=== PATIENT | male | born 1965 | race Hispanic/Latino ===

== ENCOUNTER 2025-02-19 05:59 | Day surgery (SDC) | payer BC ==
--- NOTE | 2025-02-18 14:38 | EKG ---
[facility] Test Date: 2025-02-18 Test Time: 14:28:12 Pat Name: ISAIAH BROCK Department: [facility] Room: Gender: M Family Services Assistant: [id number] : 1965 Requested By: JUD BURGOS Order Number: [id number] Reading MD: Dorothy Vega Measurements Intervals [place] Rate: 60 P: 13 AR: 161 QRS: 39 QRSD: 91 T: 22 QT: 415 QTc: 417 Interpretive Statements Sinus rhythm No previous ECG available for comparison Electronically Signed On 02-18-2025 16:38:30 CDT by Dorothy Vega Please click the below link to view image of tracing.
[2025-02-18 14:47] LABS: IMMATURE GRANULOCYTE ABSOLUTE 0.01 K/uL (0-1); NUCLEATED RED BLOOD CELLS 0.0 % (0.0-0.19); PLATELET COUNT (AUTO) 150 K/uL (130-400); RED BLOOD CELL COUNT(AUTO) 4.67 MIL/uL (4.50-6.20); RED CELL DISTRIBUTION WIDTH 13.8 % (11.0-15.5); WHITE BLOOD COUNT (AUTO) 5.7 K/uL (4.8-10.8)
[2025-02-18 14:57] VITALS: BP 101/64; PULSE 53; RESP 12; TEMP 98.2
[2025-02-18 15:08] LABS: INR 1.03 (0.85-1.15)
[2025-02-18 15:12] LABS: ASPARTATE AMINOTRANSFERASE 11.0 U/L (10-37); CREATININE 1.0 mg/dL (0.5-1.3); GLOMERULAR FILTR. RATE CALC 88.0 mL/min (>90); GLUCOSE,RANDOM 102.0 mg/dL (70-105); SODIUM SERUM 140.0 mmol/L (136-145); TOTAL PROTEIN, SERUM 6.8 g/dL (6.0-8.3); UREA NITROGEN, BLOOD 16.0 mg/dL (7-18)
[2025-02-19] VITALS (13 sets, daily range): BP systolic 98–109; BP diastolic 53–68; PULSE 56–84; RESP 15–18; TEMP 97.3–98.6
[~2025-02-19] VITALS: Ht 181.6 cm; Wt 98.0 kg
[~2025-02-19 05:59] MED LIST: P-EP-94 PO; PANT40TA54 PO
[2025-02-19] MEDS ORDERED: LACTATED RINGERS 1000ML 1,000 ML IV ONE (06:39)
[2025-02-19] MEDS ORDERED: FAMOTIDINE 20MG VIAL IV ONE (07:25)
[2025-02-19] MEDS ORDERED: MIDAZOLAM HCL 1 MG/ML 2ML VIAL ONE (07:25)
[2025-02-19] MEDS ORDERED: LIDOCAINE PF 100MG/5ML (2%) SYRINGE 5ML ONE (07:30)
[2025-02-19] MEDS ORDERED: CLINDAMYCIN IVPB 900MG/50ML 50 ML IV ONE (07:57)
[2025-02-19] MEDS ORDERED: INDOCYANINE GREEN 25 MG VIAL IJ ONE (08:13)
[2025-02-19] MEDS ORDERED: GLYCOPYRROLATE 0.2 MG/ML 5 ML VIAL ONE (08:28)
[2025-02-19] MEDS ORDERED: NEOSTIGMINE METHYLSULFATE 1MG/ML IV ONE (08:28)
[2025-02-19] MEDS: CLINDAMYCIN 900MG/6ML INJ IVPB ONE (08:35)
--- NOTE | 2025-02-19 11:02 | PN ---
GENERAL SURGERY PROGRESS NOTE Date/Time Patient Seen: [ 02/19/25 at 11am] Problem List: [ ] Interval History: [ POD 0. Pain tolerable w PO PRN meds.] Physical Examination: GENERAL: [No acute distress.] ABD: [Incisions c/d/i Dermabond in place] Vital Signs (last 8hr) Date Time Temp Pulse Resp B/P (MAP) Pulse Ox O2 Delivery O2 Flow Rate FiO2 02/19/25 10:55 97.3 71 16 105/59 95 Room Air 21 02/19/25 10:50 97.3 71 16 100/56 99 Nonrebreathing Mask 10.0 100 02/19/25 10:45 97.3 84 15 100/62 99 Nonrebreathing Mask 10.0 100 02/19/25 10:40 97.3 84 15 99/57 99 Nonrebreathing Mask 10.0 100 02/19/25 07:00 98.6 56 18 104/68 100 Room Air 21 Laboratory: [ ] Hematology Labs: Test 02/18/25 14:30 Range/Units White Blood Count 5.7 4.8-10.8 K/uL Red Blood Count 4.67 4.50-6.20 MIL/uL Hemoglobin 13.4 L 14.0-18.0 g/dL Hematocrit 41.7 L 42-54 % Mean Corpuscular Volume 89.3 79-99 fL Mean Corpuscular Hemoglobin 28.7 27.0-33.0 pg Mean Corpuscular Hemoglobin Concent 32.1 32.0-36.0 g/dL Red Cell Distribution Width 13.8 11.0-15.5 % Platelet Count 150 130-400 K/uL Mean Platelet Volume 11.9 H 7.5-10.5 fL Immature Granulocyte % (Auto) 0.2 0-1 % Neutrophils (%) (Auto) 66.8 40.0-77.0 % Lymphocytes (%) (Auto) 21.2 21.0-51.0 % Monocytes (%) (Auto) 6.5 3.0-13.0 % Eosinophils (%) (Auto) 4.6 0.0-8.0 % Basophils (%) (Auto) 0.7 0.0-5.0 % Neutrophils # (Auto) 3.8 1.8-7.7 K/uL Lymphocytes # (Auto) 1.2 1.0-4.8 K/uL Monocytes # (Auto) 0.4 0.1-1.0 K/uL Eosinophils # (Auto) 0.26 0.00-0.70 K/uL Basophils # (Auto) 0.04 0.00-0.20 K/uL Absolute Immature Granulocyte (auto 0.01 0-1 K/uL Nucleated Red Blood Cells 0.0 0.0-0.19 % Chemistry Labs: Test 02/18/25 14:30 Range/Units Sodium Level 140 136-145 mmol/L Potassium Level 4.1 3.5-5.1 mmol/L Chloride Level 104 101-111 mmol/L Carbon Dioxide Level 31 21-32 mmol/L Blood Urea Nitrogen 16 7-18 mg/dL Creatinine 1.0 0.5-1.3 mg/dL Glomerular Filtration Rate Calc 88 >90 mL/min Random Glucose 102 70-105 mg/dL Total Calcium 8.5 8.5-10.1 mg/dL Total Bilirubin 0.7 0.2-1.0 mg/dL Aspartate Amino Transf (AST/SGOT) 11 10-37 U/L Alanine Aminotransferase (ALT/SGPT) 19 12-78 U/L Alkaline Phosphatase 58 50-136 U/L Total Protein 6.8 6.0-8.3 g/dL Albumin 3.6 3.5-5.0 g/dL Coagulation Labs: Test 02/18/25 14:30 Range/Units Prothrombin Time 10.9 9.6-11.6 SEC Prothromb Time International Ratio 1.03 0.85-1.15 Activated Partial Thromboplast Time 29.1 26.3-35.5 SEC Diagnostics / Radiology: [Copy/Paste Echos/Imaging Report here] Impression and Plan: [ Plan is for d/c home today, as long as pt tolerating PO, ambulatory and pain under control. Discussed w pt and family. They understand and agree.] MARYAM BURGOS PAC Feb 19, 2025 11:02
--- NOTE | 2025-02-19 12:00 | NUR ---
Full and complete discharge instructions given to Patient and Family both verbally and in writing. Explained Surgical procedure precautions and follow up. Lap Altagracia incision sites clean dry and intact. No evidence of bleeding, bruising or hematoma. All questions answered. PIV removed with catheter tip intact. Family at bedside appearing supportive. W/C to POV with Family to home
--- NOTE | 2025-02-19 13:52 | OP ---
Operative Note: DATE OF PROCEDURE: 02/19/25 SURGEON: JUD BURGOS MD PROJECT ASSISTANT: Cristi Burgos MD p.a. C ANESTHESIA: General and local ANESTHESIOLOGIST/SCARIFIER OPERATOR: [facility] anesthesia to PREOPERATIVE DIAGNOSIS: Complications related to gastric banding, distal esophageal dilation, poor esophageal motility, gastric inlet obstruction POSTOPERATIVE DIAGNOSIS: As above SYNOPSIS: After removal of 10 cc of fluid from gastric band port robotic assisted gastric band removal was undertaken without immediate complication PROCEDURE: 1. Robotic assisted removal of gastric band and all components 2. EGD ESTIMATED BLOOD LOSS: Minimal, less than 30 cc INDICATIONS: As above DESCRIPTION OF PROCEDURE: After standard precautions and preparations were undertaken a Veress needle and optical trocar were used to enter the abdominal cavity. All other instruments were placed under direct vision. The robotic system was docked in the standard fashion.. We began our operation by following the tubing of the gastric port back towards the proximal stomach. There were dense adhesions that had to be lysed mostly i nvolving the gastrohepatic ligament, the undersurface of the liver, and the anterior surface of the stomach. We were able to dissect down onto the band buckle and noted that the band itself appeared to be surrounding tissue of the lesser curve gastrohepatic ligament and not necessarily on the stomach. The EGD scope was passed through and we were never able to visualize the scope light traversing through the band itself but instead it appeared to go lateral to the left side of the band within the stomach lumen. Retroflexed view prior to removing the band also did not seem to demonstrate that the band was surrounding the proximal stomach. It appears as though the band was encircling the gastrohepatic ligament and instead causing a compression of the lesser curve wall that was leading to symptoms of obstruction. The band was unbuckled and removed from this area of tissue. The underlying scar capsule was released. There was no indication of the band of erosion into the stomach in any way. We utilized the EGD scope to verify that there were no signs of injury to the distal esophagus or proximal stomach. There were not. The band tubing was cut and the intra-abdominal portion was removed for an of our trocar sites. We then made a cut down on the abdominal wall in the area of the patient's abdominal port. The port and capsule were removed and the area was copiously irrigated with antiseptic solution. The cut ends of the tubing were matched up on the back table to verify that the band and all components were removed in their entirety. It was sent for gross inspection by pathology. Prior to ending the case all instrument counts were verified as correct including needles and sponges. JUD BURGOS MD Feb 19, 2025 13:52
== END 2025-02-19 12:25 | disposition home or self-care (01) ==
LOC: DAH 05:59
PROVIDERS: ATTEND Surgery
DX: K95.09 Other complications of gastric band procedure (principal); K21.00 Gastro-esophageal reflux disease with esophagitis, without bleeding; K21.9 Gastro-esophageal reflux disease without esophagitis; E11.9 Type 2 diabetes mellitus without complications; K76.0 Fatty (change of) liver, not elsewhere classified; Z98.84 Bariatric surgery status; Z98.890 Other specified postprocedural states; Y83.1 Surgical operation with implant of artificial internal device as the cause of abnormal reaction of the patient, or of later complication, without mention of misadventure at the time of the procedure
CPT/HCPCS: 43774; S2900; 36415; 43235; 80053; 85025; 85610; 85730; 86850; 86900; 86901; 88305; 93005; J1100; J1171; J2003; J2250; J2371; J2405; J2704; J2710; J3010; J3490; J7030; J7120; A4213; A4215; A4216; A4221; A4222; A4223; A4600; A4663; A4930; A6260; J0665; J1308